=== PATIENT | female | born 1975 | race Two or more races ===

== ENCOUNTER 2018-09-01 09:48 | Emergency (ER) | payer OTHER ==
[~2018-09-01] VITALS: Ht 162.6 cm; Wt 59.0 kg
[2018-09-01 10:30] LABS: BASOPHILS # (AUTO) 0.06 x10^3/uL (0-0.1); BASOPHILS % (AUTO) 1 % (0-1); EOSINOPHILS # (AUTO) 0.06 x10^3/uL (0-0.4); EOSINOPHILS % (AUTO) 1 % (1-7); LYMPHOCYTES # (AUTO) 1.17 x10^3/uL (1-3.4); LYMPHOCYTES % (AUTO) 13 % (22-44); MD NO; MEAN CORPUSCULAR HEMOGLOBIN 31.5 pg (27.0-34.8); MEAN CORPUSCULAR HGB CONC 34.1 g/dL (32.4-35.8); MEAN CORPUSCULAR VOLUME 92.5 fL (80-100); MEAN PLATELET VOLUME 8.1 fL (7.4-10.4); MONOCYTES # (AUTO) 0.48 x10^3/uL (0.2-0.8); MONOCYTES % (AUTO) 5 % (2-9); NEUTROPHILS # (AUTO) 7.12 x10^3/uL (1.8-6.8); NEUTROPHILS % (AUTO) 80 % (42-75); PLATELET COUNT 322 x10^3/uL (130-400); RED BLOOD COUNT 4.46 x10^6/uL (3.82-5.3); RED CELL DISTRIBUTION WIDTH 11.3 % (9.6-15.2)
[2018-09-01] MEDS ORDERED: MORPHINE SULFATE 4 MG/ML, 1ML IVPush PRN (10:30)
[2018-09-01] MEDS ORDERED: MORPHINE SULFATE 4 MG/ML, 1ML ONE (10:34)
[2018-09-01 10:41] LABS: ALBUMIN 4.4 g/dL (3.4-5.0); ANION GAP 6 mmol/L (5-15); CALCIUM 8.8 mg/dL (8.5-10.1); CHLORIDE 105 mmol/L (98-107)
[2018-09-01 10:44] LABS: ALANINE AMINOTRANSFERASE 30 U/L (12-78); ALKALINE PHOSPHATASE 64 U/L (45-117); BILIRUBIN,TOTAL 0.6 mg/dL (0.2-1.0); CREATININE 0.68 mg/dL (0.55-1.02)
[2018-09-01 10:45] LABS: MICROSCOPIC INDICATED
[2018-09-01 10:54] LABS: CULTURE INDICATED? NO
[2018-09-01] MEDS ORDERED: SODIUM CHLORIDE FLUSH 10ML SYR IVF ONE (11:00)
[2018-09-01 12:09] VITALS: BP 126/83
== END 2018-09-01 12:16 | disposition home or self-care (01) ==
LOC: ED 12:14
DX: D25.9 Leiomyoma of uterus, unspecified (principal); F41.1 Generalized anxiety disorder; R30.0 Dysuria; Z90.49 Acquired absence of other specified parts of digestive tract
CPT/HCPCS: 36415; 76830; 80053; 81001; 83690; 84703; 85025; 96374

== ENCOUNTER 2018-09-19 20:34 | Emergency (ER) | payer OTHER ==
[~2018-09-19] VITALS: Ht 162.6 cm; Wt 55.2 kg
[2018-09-19] MEDS ORDERED: OMEP40CA6 PO (21:17)
[2018-09-19] MEDS ORDERED: NAPR-685 PO (21:17)
[2018-09-19] MEDS ORDERED: AMOX-291 PO (21:17)
[2018-09-19] MEDS ORDERED: SODIUM CHLORIDE FLUSH 10ML SYR IVF ONE (21:30)
[2018-09-19] MEDS ORDERED: KETOROLAC 30 MG/1 ML IVPush ONE (21:30)
[2018-09-19] MEDS ORDERED: KETOROLAC 30 MG/1 ML ONE (21:35)
[2018-09-19 21:44] VITALS: BP 107/77
[2018-09-19 21:45] LABS: BASOPHILS # (AUTO) 0.03 x10^3/uL (0-0.1); BASOPHILS % (AUTO) 1 % (0-1); EOSINOPHILS # (AUTO) 0.08 x10^3/uL (0-0.4); EOSINOPHILS % (AUTO) 1 % (1-7); LYMPHOCYTES # (AUTO) 1.26 x10^3/uL (1-3.4); LYMPHOCYTES % (AUTO) 19 % (22-44); MD NO; MEAN CORPUSCULAR HEMOGLOBIN 31.7 pg (27.0-34.8); MEAN CORPUSCULAR VOLUME 93.3 fL (80-100); MEAN PLATELET VOLUME 8.4 fL (7.4-10.4); MONOCYTES # (AUTO) 0.46 x10^3/uL (0.2-0.8); MONOCYTES % (AUTO) 7 % (2-9); NEUTROPHILS # (AUTO) 4.76 x10^3/uL (1.8-6.8); NEUTROPHILS % (AUTO) 72 % (42-75); PLATELET COUNT 287 x10^3/uL (130-400); RED BLOOD COUNT 4.21 x10^6/uL (3.82-5.3); RED CELL DISTRIBUTION WIDTH 11.7 % (9.6-15.2)
[2018-09-19 21:46] LABS: CULTURE INDICATED? NO; HCG UR SG 1.004 (1.003-1.030); MICROSCOPIC AUTO
[2018-09-19 21:54] LABS: ALANINE AMINOTRANSFERASE 37 U/L (12-78); ALBUMIN 3.8 g/dL (3.4-5.0); ANION GAP 7 mmol/L (5-15); CALCIUM 8.6 mg/dL (8.5-10.1); CHLORIDE 110 mmol/L (98-107); CREATININE 0.63 mg/dL (0.55-1.02)
[2018-09-19 21:57] LABS: ALKALINE PHOSPHATASE 53 U/L (45-117); BILIRUBIN,TOTAL 0.3 mg/dL (0.2-1.0); TOTAL PROTEIN 7.1 g/dL (6.4-8.2)
== END 2018-09-19 23:04 | disposition home or self-care (01) ==
LOC: ED 23:02
DX: R10.30 Lower abdominal pain, unspecified (principal); R10.31 Right lower quadrant pain; R10.32 Left lower quadrant pain; R31.9 Hematuria, unspecified; R35.0 Frequency of micturition; Z90.49 Acquired absence of other specified parts of digestive tract
CPT/HCPCS: 36415; 76700; 80053; 81001; 81025; 83690; 85025; 96374; 99285; J1885

== ENCOUNTER → 2018-10-01 | Outpatient (CLI) | payer OTHER ==
[~2018-10-01] MED LIST: AMOX-291 PO; CEPH-376 PO; NAPR-685 PO; OFLO5DRO7 EACH EAR; OMEP40CA6 PO
== END | disposition home or self-care (01) ==
LOC: STAR 15:00
PROVIDERS: ATTEND Internal Medicine Gastroenterology
DX: Z02.9 Encounter for administrative examinations, unspecified (principal)

== ENCOUNTER 2018-10-07 07:33 | Day surgery (SDC) | payer OTHER ==
[2018-10-01 15:09] VITALS: BP 109/75
[~2018-10-07] VITALS: Ht 162.6 cm; Wt 53.5 kg
[2018-10-07] MEDS ORDERED: LACTATED RINGERS 1,000 ML IV SCH (08:01)
[2018-10-07 08:27] LABS: HCG UR SG 1.018 (1.003-1.030)
[2018-10-07] MEDS ORDERED: PROPOFOL 10 MG/ML, 20ML ONE ×3 (09:55→10:55)
[2018-10-07] MEDS ORDERED: EPINEPHRINE SYRINGE 0.1 MG/ML, 10ML ONE (10:10)
[2018-10-07] MEDS ORDERED: MAALOX/HYOSCYAMINE/LIDOCAINE 45 ML BTL PO ONE (13:00)
== END 2018-10-07 13:00 | disposition home or self-care (01) ==
LOC: OUT 07:33
PROVIDERS: ATTEND Internal Medicine Gastroenterology
DX: K31.89 Other diseases of stomach and duodenum (principal); K86.9 Disease of pancreas, unspecified; D50.9 Iron deficiency anemia, unspecified; D64.9 Anemia, unspecified; Z90.49 Acquired absence of other specified parts of digestive tract
CPT/HCPCS: 43237; 43254; 81025; 88305; J2704; J7120

== ENCOUNTER 2019-01-09 00:09 | Emergency (ER) | payer OTHER ==
[~2019-01-09] VITALS: Ht 162.6 cm; Wt 53.1 kg
[2019-01-09 00:17] VITALS: BP 118/80
--- NOTE | 2019-01-09 01:32 | NUR ---
PT'S CHART UP FOR RECHECK
[2019-01-09] MEDS ORDERED: MAALOX/HYOSCYAMINE/LIDOCAINE 45 ML BTL PO ONE (02:00)
[2019-01-09] MEDS ORDERED: MAALOX/HYOSCYAMINE/LIDOCAINE 45 ML BTL ONE (02:03)
== END 2019-01-09 02:40 | disposition home or self-care (01) ==
LOC: ED 01:06
DX: J02.8 Acute pharyngitis due to other specified organisms (principal); B97.89 Other viral agents as the cause of diseases classified elsewhere
CPT/HCPCS: 70360; 71045; 87081; 87880; 99284

== ENCOUNTER 2019-02-16 13:06 | Emergency (ER) | payer OTHER ==
--- NOTE | 2019-02-16 13:25 | NUR ---
CALLED FOR PT. PT NOT IN LOBBY AT THIS TIME.
--- NOTE | 2019-02-16 13:39 | NUR ---
NOT IN LOBBY X2
--- NOTE | 2019-02-16 13:59 | NUR ---
CALLED FOR PT. PT NOT IN LOBBY X 3.
== END 2019-02-16 14:02 | disposition left against medical advice (07) ==
LOC: ED 13:56
DX: R10.9 Unspecified abdominal pain (principal); R10.2 Pelvic and perineal pain

== ENCOUNTER 2019-02-17 19:02 | Emergency (ER) | payer SELFPAY ==
[~2019-02-17] VITALS: Ht 152.4 cm; Wt 50.0 kg
--- NOTE | 2019-02-17 19:27 | NUR ---
BIB [facility] FROM HER WORK WERE PT. WAS FOUND WITH LACERATIONS TO BILAT WRISTS; BLEEDING WAS CONTROLLED UPON [facility] ARRIVAL, DRESSINGS IN PLACE ON ARRIVAL TO ED. PT. REPORTS SEVERE ABD PAIN X 6 MONTHS AND "THEY TOLD ME I HAVE A TUMOR". PT. REPORTS SA TODAY TO "END THE PAIN". DENIES HX OF SA IN THE PAST. DENIES HOME MEDS/ALLERGIES. PT. PLACED ON CONTINUOUS PULSE OX AND B/P MONITORS. AWARE OF NEED FOR URINE SAMPLE. SITTER IN [facility]. SAFETY MEASURES OBSERVED. REPORT TO MARIA T DSOUZA. DOES C/O 10/10 ABD PAIN AT THIS TIME. PT. RESTLESS AND GUARDING ABD. AWATING PROVIDER EVAL. ALL BELONGINGS REMOVED AND SECURED IN 1 BAG IN LOCKER.
--- NOTE | 2019-02-17 19:35 | NUR ---
Pt BIB EMS form home after making superficial lacerations to bilateral wrists. Pt states she has had increasing genralized pain x 7 months, worse when she in on her period. Pt states pain to arms and legs as well as abd. Pt states she has been dx'd with fibroids an well as a uterine non cancerous tumor. Pt states that today the pain just got too bad and she wanted to end things. Pt states her family is very loving and she has no problems with them. Denies other stressors. Pt tearful. Placed on legal hold by [employer]. Pt complaining of generalized pain.
[2019-02-17 20:36] LABS: BASOPHILS # (AUTO) 0.02 x10^3/uL (0-0.1); BASOPHILS % (AUTO) 0 % (0-1); EOSINOPHILS # (AUTO) 0.01 x10^3/uL (0-0.4); EOSINOPHILS % (AUTO) 0 % (1-7); LYMPHOCYTES # (AUTO) 1.76 x10^3/uL (1-3.4); LYMPHOCYTES % (AUTO) 28 % (22-44); MD NO; MEAN CORPUSCULAR HEMOGLOBIN 31.5 pg (27.0-34.8); MEAN CORPUSCULAR HGB CONC 34.9 g/dL (32.4-35.8); MEAN CORPUSCULAR VOLUME 90.4 fL (80-100); MEAN PLATELET VOLUME 8.6 fL (7.4-10.4); MONOCYTES % (AUTO) 6 % (2-9); NEUTROPHILS # (AUTO) 4.17 x10^3/uL (1.8-6.8); NEUTROPHILS % (AUTO) 66 % (42-75); PLATELET COUNT 284 x10^3/uL (130-400); RED BLOOD COUNT 4.06 x10^6/uL (3.82-5.3); RED CELL DISTRIBUTION WIDTH 11.6 % (9.6-15.2)
[2019-02-17 20:40] LABS: ALBUMIN 4.2 g/dL (3.4-5.0); ANION GAP 9 mmol/L (5-15); CALCIUM 8.7 mg/dL (8.5-10.1); CHLORIDE 105 mmol/L (98-107)
[2019-02-17 20:41] LABS: SALICYLATE LEVEL < 1.7 mg/dL (2.8-20.0)
[2019-02-17 20:42] LABS: ALANINE AMINOTRANSFERASE 42 U/L (12-78); ALKALINE PHOSPHATASE 79 U/L (45-117); BILIRUBIN,TOTAL 0.7 mg/dL (0.2-1.0); CREATININE 0.57 mg/dL (0.55-1.02)
[2019-02-17 20:43] LABS: ACETAMINOPHEN < 2 mcg/mL (10-30)
[2019-02-17] MEDS ORDERED: LIDOCAINE-MPF 1%, 5ML ONE (20:50)
[2019-02-17] MEDS ORDERED: DIPH,PERTUSS(ACELL),TET VAC/PF 0.5 ML IM-VACC ONE ×2 (20:51→21:00)
[2019-02-17] MEDS ORDERED: LIDOCAINE 1%-EPI 1:100K, 20ML SQ ONE (21:00)
[2019-02-17] MEDS ORDERED: PLEASE ENTER HEIGHT AND WEIGHT MC SCH (21:00)
--- NOTE | 2019-02-17 21:01 | NUR ---
REPORT FROM MARIA T DSOUZA TO ASSUME PT. CARE.
[2019-02-17 21:19] LABS: AMPHETAMINE SCREEN, URINE Negative (Negative); BARBITURATE SCREEN, URINE Negative (Negative); BENZODIAZEPINE SCREEN, URINE Negative (Negative); CANNABINOID SCREEN, URINE Negative (Negative); COCAINE SCREEN, URINE Negative (Negative); METHADONE SCREEN, URINE Negative (Negative); OPIATE SCREEN, URINE Negative (Negative)
--- NOTE | 2019-02-17 21:36 | NUR ---
CHART UP FOR RECHECK BY JENNIFER.
--- NOTE | 2019-02-17 22:33 | NUR ---
PT. RESTING ON GURNEY IN SUPINE POSITION; TEARFUL. FAMILY AT BS FOR SUPPORT. PT. AWATING DISPO; WANTS TO GO HOME WITH FAMILY. DENIES NEEDS AT THIS TIME. ALL SAFETY MEASURES OBSERVED.
--- NOTE | 2019-02-17 23:26 | NUR ---
SUTURES PLACED BY PA AT BS. PT. RESTING ON GURNEY WITH NAD. FAMILY REMAINS AT BS FOR SUPPORT.
--- NOTE | 2019-02-17 23:47 | NUR ---
CHERYL RN: TELEPSYCH PAGED
[2019-02-18] MEDS ORDERED: IBUPROFEN 600 MG TABLET PO ONE
[2019-02-18] MEDS ORDERED: ACETAMINOPHEN 500 MG TABLET PO ONE
[2019-02-18] MEDS ORDERED: IBUPROFEN 600 MG TABLET ONE (00:06)
[2019-02-18] MEDS ORDERED: ACETAMINOPHEN 500 MG TABLET ONE (00:06)
[2019-02-18] MEDS ORDERED: ESCI10TA PO (00:16)
--- NOTE | 2019-02-18 01:41 | NUR ---
PT. RESTING ON GURNEY WITH NADN. RESP EVEN, NON-LABORED. SITTER IN [facility]. AWAITING TELEPSYCH EVAL.
--- NOTE | 2019-02-18 02:25 | NUR ---
REPORT WAS GIVEN TO TELEPSYCH .
--- NOTE | 2019-02-18 02:51 | NUR ---
PER SOC PT. TO BE D/C WITH OUTPATIENT F/U PT. REPORTS REGRET IN DECISION AND HAS FAMILY SUPPORT. PT. DENIES ANY SI/HI AT THIS TIME. BELONGINGS GIVEN BACK TO PT.
[2019-02-18 02:52] VITALS: BP 106/75
== END 2019-02-18 03:05 | disposition home or self-care (01) ==
LOC: ED 22:35
DX: S61.512A Laceration without foreign body of left wrist, initial encounter (principal); S61.511A Laceration without foreign body of right wrist, initial encounter; F41.1 Generalized anxiety disorder; X78.9XXA Intentional self-harm by unspecified sharp object, initial encounter; Y93.89 Activity, other specified; Y92.89 Other specified places as the place of occurrence of the external cause; Y99.8 Other external cause status
CPT/HCPCS: 12002; 36415; 80053; 80307; 80329; 85025; 90471; 90715; G0480